=== PATIENT | female | born 1950 | race Caucasian/White ===

== ENCOUNTER → 2016-09-03 | Outpatient (CLI) | payer OTHER ==
[~2016-09-03] VITALS: Ht 165.1 cm; Wt 91.6 kg
[~2016-09-03] MED LIST: ASPIR-LOW81 MG PO; CALCIUM 500 +1 EAC5 PO; HYDROCODON-ACE1 EAC7 PO; NABUMETONE 750750 M1 PO; PERCOCET 5-3251 EACH PO; UNICOMPLEX M TA1 TA1 PO
--- NOTE | ~2016-09-03 | HPC ---
[facility] [address] [place] [address] PAIN MANAGEMENT CONSULTATION Name: SABINE WHITAKER Room #: REG Chase Curtis.#: [id number] Admission: 09/03/16 Attend Phys: Mitch Andres DO Discharge: Date of : 49 Report #: [id number] THIS REPORT FOR: //name// CC: Suyapa Andres DATE OF SERVICE: 09/03/2016 The patient is a 65-year-old female seen in consultation for 08/20/2016. She was given epidural injection at that time, started on Relafen 750 b.i.d. Returns to pain clinic today noting the L4-L5 injection afforded good relief of radicular pain, still has pain in her right hip and low back area. PHYSICAL EXAMINATION: Shows point tenderness over the right SI with positive pain exacerbation with resistance to rotation (positive piriformis syndrome). Positive Juan David test on the right. Lower extremity strength is symmetric. Straight leg raise negative. ASSESSMENT: 1. Symptomatic lumbar radiculopathy by clinical exam symptoms improved following epidural injection under fluoroscopy. 2. New diagnosis with some ongoing right hip degenerative joint disease, has a component of sacroiliac mediated as well as right piriformis syndrome pain. RECOMMENDATION: Long discussion with the patient today about therapeutic options. We have elected to have her continue nabumetone 750 b.i.d. She had prior been on some hydrocodone which was losing efficacy. We will trial a low dose of Percocet 5/325 one tablet at bedtime written for 30 tablets, no refill, cautioned about daytime somnolence, mental acuity change, constipation. ASSESSMENT #3: Acute exacerbation of right sacroiliac and right piriformis syndrome. RECOMMENDATION: 1. Right SI joint injection under fluoroscopy today. 2. Right piriformis muscle injection under fluoroscopy. PROCEDURE NOTE: After written informed consent was obtained, the patient was taken to the fluoroscopy suite and placed in prone position. After sterile prep and drape, skin wheal with Xylocaine was raised. A 22-gauge stylet needle was placed to contact the inferior aspect of the right SI joint. Negative aspiration was accomplished. A 30 mg triamcinolone plus 2 mL of 0.5% preservative-free bupivacaine was injected into and around the right SI joint. The needle was then withdrawn, repositioned in caudad direction and readvanced to depth of approximately 1.5 cm deep within the SI joint and approximately 1 [place] [address] PAIN MANAGEMENT CONSULTATION Name: SABINE WHITAKER Room #: REG [facility]#: [id number] Admission: 09/03/16 Attend Phys: Mitch Andres DO Discharge: Date of : 48 Report #: [id number] inferior to the joint. Needle was noted to be within the region of the right piriformis muscle. Negative aspiration was accomplished. 30 mg triamcinolone plus 2 mL of 0.5% preservative-free bupivacaine was injected at this point. Needle was removed, area was cleansed, Band-Aids applied. The patient monitored for an appropriate period of time, discharged in good and stable condition, noting incremental improvement of baseline pain by greater than 50%. Continued range of motion and follow up in 30 days for reevaluation. <ELECTRONICALLY SIGNED> By: Mitch Andres DO 09/06/16 0806 1223 1916 Mitch Andres DO /nt
[2016-09-03 10:42] VITALS: BP 151/78
== END ==
LOC: PAIN 07:21
DX: M54.16 Radiculopathy, lumbar region (principal); M53.3 Sacrococcygeal disorders, not elsewhere classified; M16.11 Unilateral primary osteoarthritis, right hip; M79.1 Myalgia
CPT/HCPCS: 20552; G0260

== ENCOUNTER → 2016-10-25 | Outpatient (CLI) | payer OTHER ==
[~2016-10-25] VITALS: Ht 165.1 cm; Wt 88.0 kg
[~2016-10-25] MED LIST changes: +OXYCODONE-ACET1 EACH PO
--- NOTE | ~2016-10-25 | HPC ---
[facility] [place] [address] [place] [address] PAIN MANAGEMENT CONSULTATION Name: SABINE WHITAKER [facility] [id number] Admission: 10/25/16 Attend Phys: Mitch Andres DO Discharge: Date of : 49 Report #: [id number] THIS REPORT FOR: //name// CC: Suyapa Andres HISTORY OF PRESENT ILLNESS: The patient is a 65-year-old female, initially seen in consultation 08/20/2016, diagnosis with component of right lumbar radiculopathy, given L4-L5 epidural injection at that time. That afforded good relief of her radicular pain; however, on followup, 09/03/2016, she still had some ongoing pain. Diagnosed at that time as right SI-mediated piriformis pain. I had performed a right SI and right piriformis injection at that time. She returns to the pain clinic today. We had a prolonged visit from 09:41 to 10:10. Greater than 50% of this 25+ minute visit was spent counseling the patient. She notes pain is in the right low back, buttock, right hip with paresthesia in the lateral aspect of the right lower leg. She notes pain is a 5 on a 0-10 visual analog scale. Describes it as a burning, grabbing sensation, exacerbated with activity, standing or walking for any period of time. It is also exacerbated with bending forward, as in trying to fill the bath tub. The patient recently saw her general labor physician, renewed the Percocet I had given the patient at last visit (very low dose, I provided prescription for 30 tablets, now nearly 2 months ago). PHYSICAL EXAMINATION: GENERAL: Reveals a 65-year-old female. BMI is 32.3 kilograms per meter squared. VITAL SIGNS: Blood pressure is 111/71, pulse 75 and respirations are 14. NEUROLOGIC: Alert and oriented to person, place and time; judged to be a reasonable historian. Rises from the chair using armrest. Has a moderately gynecoid build. Does have an antalgic gait favoring the right leg. She states she can go up and down stairs normal; however, if pain is terribly problematic, she has a difficult time lifting the right leg. She states she has difficulty time lifting the right leg to get into her trousers. So, objectively, lower extremity strength is pretty symmetric, about 4/5 to all muscle groups tested. Straight leg raise is modestly positive on the right at 30 degrees. Patellar and Achilles reflexes are diminished on the right compared to the left, 0-1/4 versus 1-2/4 on the left. Range of motion of both hips is limited, with pain radiating to the groin. Juan David test, however, is negative. Gaenslen test is negative. Passive internal rotation of the right leg does exacerbate pain in the gluteal area and resistance to active external rotation exacerbates pain in the piriformis muscle distribution. Passive rotation of the hip proper does not exacerbate pain, though again, range of motion is somewhat limited. DIAGNOSTIC STUDIES: There are no recent diagnostic studies available for [address] [address] PAIN MANAGEMENT CONSULTATION Name: SABINE WHITAKER Room #: REG ALVIN Pleitez#: [id number] Admission: 10/25/16 Attend Phys: Mitch Andres DO Discharge: Date of : 49 Report #: [id number] evaluation at this time. ASSESSMENT: Long discussion with the patient today about therapeutic options. She has a component of lumbar radiculopathy, component of sacroiliac and/or piriformis (right sided) mediated pain. History of some degenerative joint disease in the right hand. RECOMMENDATIONS: After long discussion with the patient, we have elected to eschew any interventional therapy at this time. We will order diagnostic tests, including MRI of the lumbar spine to evaluate the radicular component and an MRI of the pelvis to evaluate the SI and piriformis mediated pain. We will make an appointment to see the patient after the diagnostic studies for consideration for more definitive intervention if indicated versus ongoing therapeutic care. We will likely, at a minimum, refer the patient to physical therapy for some core strengthening and continue nabumetone and rare Percocet. We will discuss further interventional care at the next visit. Discharged in good and stable condition after a moderately prolonged visit discussing complex medication issues and direction of care. By: [id number] Mitch Andres DO /nt
[2016-10-25 09:35] VITALS: BP 111/71
== END | disposition home or self-care (01) ==
LOC: PAIN 06:49
DX: M54.16 Radiculopathy, lumbar region (principal); M53.3 Sacrococcygeal disorders, not elsewhere classified; M19.041 Primary osteoarthritis, right hand; Z79.82 Long term (current) use of aspirin; Z98.890 Other specified postprocedural states

== ENCOUNTER → 2016-11-01 | Outpatient (CLI) | payer OTHER | LOC: MRI 10:47 | DX: M41.86 Other forms of scoliosis, lumbar region (principal); D25.9 Leiomyoma of uterus, unspecified; M53.3 Sacrococcygeal disorders, not elsewhere classified; M54.16 Radiculopathy, lumbar region ==

== ENCOUNTER → 2016-11-04 | Outpatient (CLI) | payer OTHER ==
[~2016-11-04] VITALS: Ht 165.1 cm; Wt 88.9 kg
[2016-11-04 14:03] VITALS: BP 118/71
== END | disposition home or self-care (01) ==
LOC: PAIN 06:45
DX: M48.06 Spinal stenosis, lumbar region (principal); F11.20 Opioid dependence, uncomplicated; Z79.82 Long term (current) use of aspirin; Z98.890 Other specified postprocedural states

== ENCOUNTER → 2016-11-18 | Outpatient (CLI) | payer OTHER ==
[~2016-11-18] VITALS: Ht 165.1 cm; Wt 88.9 kg
[2016-11-18 12:51] VITALS: BP 120/75
== END | disposition home or self-care (01) ==
LOC: PAIN 06:50
DX: M48.06 Spinal stenosis, lumbar region (principal); M54.16 Radiculopathy, lumbar region; G89.29 Other chronic pain; Z98.890 Other specified postprocedural states; Z79.82 Long term (current) use of aspirin

== ENCOUNTER → 2016-12-17 | Outpatient (CLI) | payer OTHER ==
[~2016-12-17] VITALS: Ht 165.1 cm; Wt 86.2 kg
--- NOTE | ~2016-12-17 | HPC ---
[facility] [place] [place] [address] PAIN MANAGEMENT CONSULTATION Name: SABINE WHITAKER [facility] [id number] Admission: 12/17/16 Attend Phys: Mitch Andres DO Discharge: Date of : 49 Report #: [id number] THIS REPORT FOR: //name// CC: Suyapa Andres DATE OF SERVICE: 12/17/2016 The patient is a very pleasant 66-year-old female. She has been treated here for symptomatic lumbar radiculopathy. I saw her earlier in this year, I believe around 08/20/2016. We did an epidural injection L4-L5 with incremental improvement of baseline pain. She did have an SI joint injection 09/03/2016 and a repeat epidural injection 11/19/2016 at L4-L5. While this has afforded some relief, pain has continued to be problematic. Pain gets up to a 9 on a VAS scale. Pain in the low back, right leg down the lateral aspect of the foot. She finally followed up with Dr. Flowers at [facility]. They are now planning to move forward with an L2 through L4 laminectomy at the end of the month. She and her are planning to take her mother back to [place] for 2 weeks. They are planning this vacation for 6 months. She was asking for some pain medicine to get through the vacation. I had given her prescription for Percocet 5/325, 100 tablets approximately 1 month ago (11/19/2016). PHYSICAL EXAMINATION: Shows a 66-year-old female, BMI is 31.6 kilograms per meter squared. Vital signs are stable as noted on the EMR. She had fallen since we saw her, tripped over a bedroom slipper, did have a fracture of 1 rib that is improving. No splinting or guarding is noted. Gait is moderately antalgic. Straight leg raise is positive on the right, slight decreased right hip flexion strength. ASSESSMENT: Symptomatic lumbar radiculopathy secondary to spinal stenosis requiring complex medication management. RECOMMENDATION: Renew Percocet , dispensed 100 tablets. The patient cautioned about daytime somnolence, mental acuity changes, constipation. This should get her to her surgery scheduled for 01/05/2017. I will be happy to see her on as needed basis. Subsequently hopefully after surgery, [place] [address] PAIN MANAGEMENT CONSULTATION Name: SABINE WHITAKER Room #: NHAN ESQUIVEL Maik#: [id number] Admission: 12/17/16 Attend Phys: Mitch Andres DO Discharge: Date of : 49 Report #: [id number] will be significantly improved, and she will not require our interventions. Again; however, I will be happy to see her on an as needed basis. <ELECTRONICALLY SIGNED> By: Mitch Andres DO 12/20/16 0908 1246 1305 Mitch Andres DO /lalo
[2016-12-17 12:32] VITALS: BP 128/72
== END | disposition home or self-care (01) ==
LOC: PAIN 07:21
DX: Z76.0 Encounter for issue of repeat prescription (principal); M54.16 Radiculopathy, lumbar region; M48.06 Spinal stenosis, lumbar region; Z79.891 Long term (current) use of opiate analgesic; Z98.890 Other specified postprocedural states; Z79.82 Long term (current) use of aspirin

== ENCOUNTER → 2017-03-04 | Outpatient (CLI) | payer OTHER ==
[~2017-03-04] VITALS: Ht 165.1 cm; Wt 88.7 kg
[~2017-03-04] MED LIST changes: +NEURONTIN 300300 M1 PO; +PERCOCET PO
--- NOTE | ~2017-03-04 | HPC ---
[facility] [place] [address] [place] [address] PAIN MANAGEMENT CONSULTATION Name: SABINE WHITAKER Room #: REG [facility] Curtis.#: [id number] Admission: 03/04/17 Attend Phys: Mitch Andres DO Discharge: Date of : 49 Report #: [id number] THIS REPORT FOR: //name// CC: Suyapa Andres The patient is a 66-year-old female being treated for lumbar radiculopathy status post decompressive laminectomy. She had prior been seen earlier in the year for lumbar radicular symptoms. She progressed to have a lumbar decompressive laminectomy at L2-L3 and L3-L4 on January 05. This afforded good relief with the right low back pain. However, pain has begun to recur last 3 weeks in the right gluteal area, 5/10 at present, 10/10 at the end of the day. She has been sleeping in a reclining chair because of pain. PHYSICAL EXAMINATION: Shows a 66-year-old female, BMI is noted on EMR . Vital signs stable as noted in the EMR. Rises from chair using armrest. Markedly antalgic gait. Tender in the right gluteal area with a positive straight leg raise on the right side. Modestly positive Juan David test on this right side as well. ASSESSMENT: Symptomatic lumbar radiculopathy status post decompressive laminectomy on January 05. Excellent resolution of symptoms, but symptoms are beginning to recur. The patient notes pain at the start in the right buttock, it radiated down the leg prior to surgery. Also, has a component of SI mediated pain. RECOMMENDATIONS: 1. Epidural injection under fluoroscopy today, right of midline, L4-L5. 2. Follow up in 2-3 weeks for reevaluation and consideration for right SI joint injection if indicated clinically. ASSESSMENT: Symptomatic lumbar radiculopathy status post decompressive laminectomy. PROCEDURE: Lumbar epidural injection under fluoroscopy. PROCEDURE NOTE: After both written and informed consent to include risk of spinal cord damage, increased pain, weakness and dural puncture, the patient was taken to the fluoroscopy suite, placed in the prone position. After sterile prep and drape, a skin wheal with lidocaine was raised. A 22-gauge epidural Tuohy needle was inserted in the midline at L4-L5 with good loss to resistance. Negative aspiration for cerebrospinal fluid or blood was noted. Then 1 mL of Omnipaque under biplanar fluoroscopy showed good spread within the epidural space. This was followed with 80 mg of triamcinolone plus 1 mL of 1.5% preservative-free Xylocaine, 0.5 mL Xylocaine was then injected to flush the [address] [address] PAIN MANAGEMENT CONSULTATION Name: SABINE WHITAKER LOVE Room #: REG [facility] Maik#: [id number] Admission: 03/04/17 Attend Phys: Mitch Andres DO Discharge: Date of : 48 Report #: [id number] needle; it was removed. The patient was monitored for an appropriate period of time and discharged in good and stable condition. <ELECTRONICALLY SIGNED> By: Mitch Andres DO 03/07/17 0929 1231 1432 Mitch Andres DO /nt
[2017-03-04 09:34] VITALS: BP 121/82
== END ==
LOC: PAIN 08:07
DX: M54.16 Radiculopathy, lumbar region (principal)

== ENCOUNTER → 2017-04-11 | Outpatient (CLI) | payer OTHER ==
[~2017-04-11] VITALS: Ht 165.1 cm; Wt 87.5 kg
[~2017-04-11] MED LIST changes: +TRAMADOL 50 MG50 MG PO; +TYLENOL EXTRA500 MG PO
--- NOTE | ~2017-04-11 | HPC ---
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 She had had a decompressive laminectomy on 01/05/2017. Prior to the surgery, she had had back and bilateral leg pain. Remarkable improvement following the surgery, however, past 2 weeks, she has been having increasing pain right lateral calf, burning, stinging sensation. I had prior done a midline epidural injection L5-S1 on 03/04/2017 with very good, relief greater than 60% for a number of weeks. The patient notes she is doing physical therapy 2-3 times a week, daily home exercises twice a day, core therapy and stretch. She has a followup appointment with Dr. Flowers at [facility], her prior surgeon. Today, we talked about failed back patients with ongoing pain showing no evidence of myelopathy (no weakness, no bowel or bladder continence changes). I talked about spinal cord stimulator as a possible therapeutic option. I did suggest, however, that we would not consider this until at least 6 months after her surgery. Currently, the patient notes pain is in the right hip and leg; rates it at 5 on a VAS; exacerbated with activity including standing and bending; worse at the end of the day. PHYSICAL EXAMINATION: Shows a 66-year-old female, BMI is 32.1 kilograms per meter squared. Vital signs stable as noted in the EMR. Has an antalgic gait. Positive thoracic kyphosis. Tender in the right gluteal area. Pain with weightbearing on the right side. Positive straight leg raise on the right, though fairly nominal. Strength is generally symmetric. ASSESSMENT: 1. Symptomatic lumbar radiculopathy status post decompressive laminectomy. 2. Chronic axial back pain. RECOMMENDATION: Long discussion with the patient today about therapeutic options. Again, we did discuss spinal cord stimulator as a possible therapeutic option. We discussed the device in general terms and specific indications to the patient. I did give the patient print video literature regarding the [employer] spinal cord stimulator device. We will, however, again wait until the spring before we make any decisions regarding more definitive intervention. Today, we have elected to proceed with epidural injection under fluoroscopy today to help with acute radicular symptoms. We will trial tramadol for pain, I [address] [address] PAIN MANAGEMENT CONSULTATION Name: JULIANNESABINE LOVE Room #: REG ALVIN Pleitez#: [id number] Admission: 04/11/17 Attend Phys: Mitch Andres DO Discharge: Date of : 48 Report #: [id number] have taken the liberty of writing for 75 tablets, directions one tablet 2-3 times a day for pain. ASSESSMENT: Symptomatic lumbar radiculopathy status post decompressive laminectomy, axial back pain, chronic pain syndrome. PROCEDURE: Lumbar epidural injection under fluoroscopy. PROCEDURE NOTE: After both written and informed consent to include risk of spinal cord damage, increased pain, weakness and dural puncture, the patient was taken to the fluoroscopy suite, placed in the prone position. After sterile prep and drape, a skin wheal with lidocaine was raised. A 22-gauge epidural Tuohy needle was inserted in the midline at L5-S1 with good loss to resistance. Negative aspiration for cerebrospinal fluid or blood was noted. Then 1 mL of Omnipaque under biplanar fluoroscopy showed good spread within the epidural space. This was followed with 80 mg of triamcinolone plus 1 mL of 1.5% preservative-free Xylocaine, 0.5 mL Xylocaine was then injected to flush the needle; it was removed. The patient was monitored for an appropriate period of time and discharged in good and stable condition. <ELECTRONICALLY SIGNED> By: Mitch Andres DO 04/13/17 0834 1529 51 Mitch Andres DO /nt
[2017-04-11 13:28] VITALS: BP 139/81
== END | disposition home or self-care (01) ==
LOC: PAIN 07:32
DX: M54.16 Radiculopathy, lumbar region (principal); G89.4 Chronic pain syndrome; Z68.32 Body mass index [BMI] 32.0-32.9, adult

== ENCOUNTER → 2017-07-15 | Outpatient (CLI) | payer OTHER ==
[~2017-07-15] VITALS: Ht 165.1 cm; Wt 89.0 kg
--- NOTE | ~2017-07-15 | HPC ---
[facility] [address] [facility] [place] [address] PAIN MANAGEMENT CONSULTATION Name: SABINE WHITAKER [facility] [id number] Admission: 07/15/17 Attend Phys: Mitch Andres DO Discharge: Date of : 49 Report #: [id number] THIS REPORT FOR: //name// CC: Suyapa Andres The patient is a 66-year-old female, prior seen in the pain clinic in April for symptomatic lumbar radiculopathy, status post decompressive laminectomy (01/06/2017). We did epidural injection in February and again in April at L5-S1 with overall improvement of baseline pain. We briefly talked about a spinal cord stimulator as a possible therapeutic option to help with ongoing pain. She returns to pain clinic today. Epidural injection did afford good relief. She has some unique pain now in the right SI area. Pain is exacerbated with standing, walking and bending. She rates pain 4 on a VAS. She takes tramadol 1-2 tablets mostly in the evening with good efficacy, no negative impacts including sedation, cognitive impairment, or constipation. PHYSICAL EXAMINATION: Shows 5 feet 5 inches, 196-pound female, BMI is 32.6 kg/m2. Blood pressure is 137/86, pulse 69, respirations are 18. Subjective pain score is 4 on a VAS. She tripped last week, but denies significant falls otherwise, leg did not give out, she merely tripped over an object. Functional assessment score is 23/70. She is alert and oriented to person, place and time, judged to be a reasonable historian. Rises from the chair using armrest. Again, discrete tenderness over the right SI with grossly positive Juan David test, Gaenslen's test and pelvic distraction on the right side. Lower extremity strength, however, is generally preserved. ASSESSMENT: 1. Symptomatic lumbar radiculopathy, status post decompressive laminectomy, does have a component of some neuropathic pain in the right lateral lower extremity, etiology is somewhat obscure, does have significant component of sacroiliac mediated pain on the right side. 2. Right sacroiliac mediated pain. RECOMMENDATION: 1. Increase tramadol to up to 4 a day, I have taken the liberty of writing for 120 tablets with 2 refills. 2. Right SI joint injection under fluoroscopy today. 3. We briefly talked about spinal cord stimulator as a therapeutic option, at this point I think if we can manage symptoms with up to 4 tramadol a day and occasional injection, I think that would be much more desirable then [place] [address] PAIN MANAGEMENT CONSULTATION Name: SABINE WHITAKER Room #: REG ALVIN Pleitez#: [id number] Admission: 07/15/17 Attend Phys: Mitch Andres DO Discharge: Date of : 48 Report #: [id number] PROCEDURE: Right SI joint injection under fluoroscopy. PROCEDURE: After written informed consent was obtained, the patient was taken to the fluoroscopy suite and placed in prone position. After sterile prep and drape, skin wheal was raised. A 22-gauge stylet needle was placed to contact the inferior aspect of the right SI joint. Negative aspiration was accomplished. A 1 mL of Omnipaque was injected, which showed spread within the joints, this was followed with 40 mg of triamcinolone plus 2 mL of 0.5% preservative-free bupivacaine. Needle was removed, the area was cleansed, Band-Aids applied. The patient was monitored for an appropriate period of time, discharged in good and stable condition. <ELECTRONICALLY SIGNED> By: Mitch Andres DO 07/21/17 0938 1233 1555 Mitch Andres DO /nt
[2017-07-15 10:49] VITALS: BP 137/86
== END ==
LOC: PAIN 07:06
DX: M53.3 Sacrococcygeal disorders, not elsewhere classified (principal); M54.16 Radiculopathy, lumbar region; Z98.890 Other specified postprocedural states; Z68.32 Body mass index [BMI] 32.0-32.9, adult